=== PATIENT | female | born 1965 | race American Indian/Alaskan Native ===

== ENCOUNTER 2017-03-11 23:21 | Inpatient (IN) | payer OTHER ==
[2017-03-12 01:17] LABS: Basophils % (Auto) 0.5 % (0.0-1.8); Eosinophils % (Auto) 0.7 % (0.0-4.3); Hematocrit 37.3 % (30.3-42.9); Hemoglobin 11.8 gm/dl (10.1-14.3); Mean Corpuscular HGB Conc 32 % (30-34); Mean Corpuscular Hemoglobin 26 pg (28-32); Mean Corpuscular Volume 82 fl (79-97); Platelet Count 252 K/mm3 (140-440); Red Blood Count 4.56 M/mm3 (3.65-5.03); Red Cell Distribution Width 17.6 % (13.2-15.2); White Blood Count 6.7 K/mm3 (4.5-11.0)
[2017-03-12 01:37] LABS: Anion Gap 17 mmol/L; BUN/Creatinine Ratio 12; Blood Urea Nitrogen 7 mg/dL (7-17); Calcium 9.6 mg/dL (8.4-10.2); Carbon Dioxide 26 mmol/L (22-30); Chloride 98.7 mmol/L (98-107); Glucose 196 mg/dL (65-100); Potassium 3.7 mmol/L (3.6-5.0); Sodium 138 mmol/L (137-145)
--- NOTE | 2017-03-12 08:48 | XRay Report ---
AP CHEST: HISTORY: chest pain AP view of the chest demonstrates a normal mediastinal and cardiac contour with clear lungs and normal bony and soft tissue structures. IMPRESSION: Unremarkable AP chest.
[2017-03-12 09:04] LABS: Alanine Aminotransferase 17 units/L (7-56); Albumin 3.6 g/dL (3.9-5); Alkaline Phosphatase 74 units/L (35-129); Lipase 27 units/L (13-60); Total Protein 7.2 g/dL (6.3-8.2)
[2017-03-12 09:06] LABS: Bilirubin,Direct < 0.2 mg/dL (0-0.2); Bilirubin,Indirect 0.2 mg/dL
[2017-03-12] MEDS ORDERED: NACL 0.9% 1000 ML 1,000 ML IV ONE (09:16)
--- NOTE | 2017-03-12 10:23 | Emergency Department Report ---
ED Chest Pain HPI - General Chief Complaint: Chest Pain Stated Complaint: CHEST PAIN Time Seen by Provider: 03/12/17 08:18 Source: patient Mode of arrival: Ambulatory Limitations: No Limitations - History of Present Illness Initial Comments: 51 YO FEMALE WITH C/O 8/10 RETROSTERNAL CHEST PAIN ASSOCIATED WITH FATIGUE. SHE HAS BEEN HAVING RECURRENT CHEST PAIN WITH FATIGUE FOR SEVERAL MONTHS BUT SYMPTOMS ARE MORE FREQUENT AND LONG LASTING.PT ALSO COMPLAINS OF HEADACHE EVERYDAY AND ON 03/06/17 HAD THE WORSE HEADACHE OF HER LIFE. 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 SHE HAS HAD NO N/V/F/C BUT ONLY FATIGUE. MS VILLA IS A TYPE II DIABETIC,HTN,ARTHRITIS. 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 PT TOLD TRIAGE THAT SHE HAS HAD 6 DAYS OF CHEST PAIN ASSOCIATED WITH NAUSEA, BUT NO SHORTNESS OF BREATH. HER CHEST PAIN HAS INCREASED TODAY AND IS RADIATING INTO HER BACK. SHE HAS HAD A HEADACHE SINCE LAST WEEK. PT TOLD ME SHE HAS HAD A HEADACHE FOR YEARS BECAUSE OF GLAUCOMA MD Complaint: chest pain -: Gradual Onset: during rest Pain Location: substernal Pain Radiation: back Severity: moderate Severity scale (0 -10): 8 Consistency: intermittent Improves With: rest Other Symptoms: other (SHORT OF BREATH) - Related Data Home Medications Medication Instructions Recorded Confirmed Last Taken glipiZIDE [Glipizide] 10 mg PO BID 03/12/17 03/12/17 03/11/17 metFORMIN [Glucophage] 500 mg PO BID 03/12/17 03/12/17 03/11/17 Allergies Allergy/AdvReac Type Severity Reaction Status Date / Time ibuprofen [From Motrin IB] AdvReac Mild Hives Verified 09/16/14 04:25 Heart Score - HEART Score History: Highly suspicious EKG: Normal Age: 45-65 Risk factors: > 3 risk factors or hx of atherosclerotic disease Troponin: < normal limit HEART Score: 5 ED Review of Systems ROS: Stated complaint: CHEST PAIN Other details as noted in HPI ED Past Medical Hx - Past Medical History Previous Medical History?: Yes Hx Hypertension: Yes ("I have high blood pressure sometimes") Hx Diabetes: Yes Hx Arthritis: Yes Hx Asthma: No Hx HIV: No - Surgical History Past Surgical History?: Yes Additional Surgical History: , hysterectomy - Social History Smoking Status: Never Smoker Substance Use Type: None - Medications Home Medications: Home Medications Medication Instructions Recorded Confirmed Last Taken Type glipiZIDE [Glipizide] 10 mg PO BID 03/12/17 03/12/17 03/11/17 History metFORMIN [Glucophage] 500 mg PO BID 03/12/17 03/12/17 03/11/17 History ED Physical Exam - General Limitations: No Limitations General appearance: alert, in no apparent distress - Head Head exam: Present: atraumatic, normocephalic - Eye Eye exam: Present: normal appearance, EOMI ( IN RIGHT EYE, LEFT EYE BLIND PTOSIS ) - ENT ENT exam: Present: mucous membranes moist - Neck Neck exam: Present: normal inspection, full ROM - Respiratory Respiratory exam: Present: normal lung sounds bilaterally. Absent: respiratory distress - Cardiovascular Cardiovascular Exam: Present: regular rate, normal rhythm. Absent: systolic murmur, diastolic murmur, rubs, gallop - GI/Abdominal GI/Abdominal exam: Present: soft, normal bowel sounds, other (LARGE CENTRIPITAL FAT) - Extremities Exam Extremities exam: Present: normal inspection, full ROM - Back Exam Back exam: Present: normal inspection, full ROM - Neurological Exam Neurological exam: Present: alert, oriented X3, CN II-XII intact - Psychiatric Psychiatric exam: Present: normal affect, normal mood - Skin Skin exam: Present: warm, dry, intact, normal color. Absent: rash ED Course Vital Signs 03/12/17 03/12/17 03/12/17 00:04 00:21 08:18 Temperature 98 F 98 F 98.0 F Pulse Rate 77 77 56 L Respiratory 18 18 18 Rate Blood Pressure 127/79 Blood Pressure 127/79 137/82 [Right] O2 Sat by Pulse 98 98 99 Oximetry 03/12/17 03/12/17 03/12/17 11:06 11:10 11:30 Temperature Pulse Rate 60 60 62 Respiratory Rate Blood Pressure 133/82 126/78 130/74 Blood Pressure [Right] O2 Sat by Pulse Oximetry REJI score - Reji Score Age > 65: (0) No Aspirin use within the Past 7 Days: (0) No 3 or more CAD Risk Factors: (1) Yes 2 or more Angina events in past 24 hrs: (1) Yes Known CAD with more than 50% Stenosis: (0) No Elevated Cardiac Markers: (0) No ST Deviation Greater than 0.5mm: (0) No REJI Score: 2 ED Medical Decision Making - Lab Data Result diagrams: 03/12/17 13:11 03/12/17 13:11 - EKG Data EKG shows normal: sinus rhythm, axis, intervals, ST-T waves - EKG Data Interpretation: other (EARLY TRANSITION) - Radiology Data Radiology results: report reviewed (CXR: CLEAR CT HEAD;NEGATIVE) Critical care attestation.: If time is entered above; I have spent that time in minutes in the direct care of this critically ill patient, excluding procedure time. ED Disposition Clinical Impression: Unstable angina, Obesity (BMI 30-39.9) Hyperglycemia due to type 2 diabetes mellitus Qualifiers: Diabetes mellitus [facility] insulin use: without [facility] use Qualified Code(s ): E11.65 - Type 2 diabetes mellitus with hyperglycemia Headache Qualifiers: Headache type: unspecified Headache chronicity pattern: chronic headache Intractability: intractable Qualified Code(s): R51 - Headache Disposition: -09 OP ADMIT IP TO THIS HOSP Is pt being admited?: Yes Does the pt Need Aspirin: No Condition: Stable Instructions: Angina (ED), Diabetes Mellitus Type 2 in Adults (ED) Referrals: RENATA WERNER MD [Primary Care Provider] - 3-5 Days Time of Disposition: 14:34 (CASE REVIEWED WITH DR BUCKNER AND HE WILL ADMIT THE PT TOP THE HOSPITAL)
[2017-03-12] MEDS: ASPIRIN PO SCH (11:06)
[2017-03-12] MEDS: NITROSTAT SL PRN ×3 (11:06→11:30)
--- NOTE | 2017-03-12 12:33 | Cat Scan Report ---
CT HEAD WITHOUT CONTRAST: HISTORY: Headache. TECHNIQUE: Sequential 2.5mm CT images. COMPARISON: none. FINDINGS: Cerebral Parenchyma: Within normal limits. Cerebellum: Within normal limits. Brainstem: Within normal limits. Ventricles: Normal. Sella: Normal. Extra-axial spaces: Normal. Basal Cisterns: Normal. Intracranial Hemorrhage: None. Midline Shift: None. Calvarium: Normal. Sinuses: Normal. Mastoid Air Cells: Normal. Visualized Orbits: Normal. IMPRESSION: Cranial CT scan within normal limits.
--- NOTE | 2017-03-12 12:36 | History and Physical Report ---
History of Present Illness Chief complaint: I have chest pain History of present illness: 51 YO Female with HTN, DM,OA presents to ED for evaluation. Pt states that she has experienced pain in her chest for the past several weeks as well as feeling tired. Pt states that her symptoms have worsened and become more frequent over the past 6 days. Pain is 6-8/10, Substernal, worse with exertion, relieved with rest, associated with nausea, and diaphoresis, radiates to the back. Pt denies fever, chills, palpitations, Syncope, Trauma, productive cough, recent ill contacts, BRBPR, leg/calf pain, prolonged immobility/travel, individual/family history of DVT/PE. Pt seen and evaluated in ED and found to have ACS. Pt admitted to telemetry and treated IAW chest pain protocol. Past History Past Medical History: arthritis, diabetes, hypertension Past Surgical History: , hysterectomy Medications and Allergies Allergies Allergy/AdvReac Type Severity Reaction Status Date / Time ibuprofen [From Motrin IB] AdvReac Mild Hives Verified 09/16/14 04:25 Home Medications Medication Instructions Recorded Confirmed Last Taken Type glipiZIDE [Glipizide] 10 mg PO BID 03/12/17 03/12/17 03/11/17 History metFORMIN [Glucophage] 500 mg PO BID 03/12/17 03/12/17 03/11/17 History Active Meds: Active Medications Aspirin (Aspirin) 325 mg PO QDAY JENNIFER Last Admin: 03/12/17 11:06 Dose: Not Given Nitroglycerin (Nitrostat) 0.4 mg SL .Q5MIN PRN PRN Reason: Chest Pain Last Admin: 03/12/17 11:06 Dose: 0.4 mg Review of Systems Constitutional: no weight loss, no weight gain, no fever, no chills Ears, nose, mouth and throat: no ear pain, no ear discharge, no tinnitis, no decreased hearing, no nose pain Breasts: no change in shape, no swelling, no mass Cardiovascular: chest pain, no orthopnea, no palpitations, no rapid/irregular heart beat, no edema, no syncope Respiratory: no cough with sputum, no excessive sputum, no hemoptysis, no shortness of breath Gastrointestinal: nausea, vomiting, no diarrhea, no constipation, no change in bowel habits Genitourinary Female: no pelvic pain, no flank pain, no menorrhagia, no dysuria , no urinary frequency, no urgency Rectal: no pain, no incontinence, no bleeding Musculoskeletal: no neck stiffness, no neck pain, no shooting arm pain, no arm numbness/tingling, no low back pain Integumentary: no rash, no pruritis, no redness, no sores, no wounds, no jaundice Neurological: no head injury, no transient paralysis, no paralysis, no weakness , no parathesias, no numbness, no tingling Psychiatric: no anxiety, no memory loss, no change in sleep habits, no sleep disturbances, no insomnia, no hypersomnia, no change in appetite Endocrine: no cold intolerance, no heat intolerance, no polyphagia, no excessive thirst, no polydipsia, no polyuria, no nocturia Hematologic/Lymphatic: no easy bruising, no easy bleeding Allergic/Immunologic: no urticaria, no allergic rhinitis, no wheezing Exam - Constitutional Vitals: Temp Pulse Resp BP Pulse Ox 98.0 F 60 18 133/82 99 03/12/17 08:18 03/12/17 11:06 03/12/17 08:18 03/12/17 11:06 03/12/17 08:18 General appearance: Present: mild distress, obese - EENT Eyes: Present: PERRL ENT: hearing intact, clear oral mucosa - Neck Neck: Present: supple, normal ROM - Respiratory Respiratory effort: normal Respiratory: bilateral: CTA - Cardiovascular Heart Sounds: Present: S1 & S2. Absent: rub, click - Extremities Extremities: pulses symmetrical, No edema Peripheral Pulses: within normal limits - Abdominal General gastrointestinal: Present: soft, non-tender, non-distended, normal bowel sounds Female genitourinary: Present: normal - Integumentary Integumentary: Present: clear, warm, dry - Musculoskeletal Musculoskeletal: gait normal, strength equal bilaterally - Psychiatric Psychiatric: appropriate mood/affect, intact judgment & insight - Neurologic Neurologic: CNII-XII intact, moves all extremities Results - Labs CBC & Chem 7: 03/12/17 13:11 03/12/17 13:11 Labs: Abnormal lab results 03/12/17 03/12/17 03/12/17 Range/Units 00:51 00:51 01:26 MCH 26 L (28-32) pg RDW 17.6 H (13.2-15.2) % Lymph % (Auto) 39.9 H (13.4-35.0) % Creatinine 0.6 L (0.7-1.2) mg/dL Glucose 196 H (65-100) mg/dL POC Glucose 209 H (70-105) Albumin (3.9-5) g/dL 03/12/17 Range/Units 08:27 MCH (28-32) pg RDW (13.2-15.2) % Lymph % (Auto) (13.4-35.0) % Creatinine (0.7-1.2) mg/dL Glucose (65-100) mg/dL POC Glucose (70-105) Albumin 3.6 L (3.9-5) g/dL Assessment and Plan - Patient Problems (1) ACS (acute coronary syndrome) Current Visit: Yes Status: Acute Plan to address problem: Admit to telemetry, serial cardiac enzymes, echo, stress test, cardiology consulted, morphine, oxygen, nitro tabs, aspirin, (2) HTN (hypertension) Current Visit: Yes Status: Acute Plan to address problem: monitor bp q shift, continue medical management. (3) Diabetes Current Visit: Yes Status: Acute Plan to address problem: ADA diet, insulin, accu check (4) Metabolic syndrome Current Visit: Yes Status: Acute Plan to address problem: Low cholesterol diet, increased physical activity at discharge, statin therapy (5) DVT prophylaxis Current Visit: Yes Status: Acute
[2017-03-12] MEDS ORDERED: PROVENTIL IH PRN (12:51)
[2017-03-12] MEDS ORDERED: DULCOLAX PR PRN (12:51)
[2017-03-12] MEDS ORDERED: ZOFRAN IV PRN (12:51)
[2017-03-12] MEDS ORDERED: MILK OF MAGNESIA PO PRN (12:51)
[2017-03-12] MEDS ORDERED: SODIUM CHLORIDE FLUSH SYRINGE 10 ML IV PRN (12:51)
[2017-03-12] MEDS ORDERED: TYLENOL PO PRN (12:51)
[2017-03-12] MEDS ORDERED: BABY ASPIRIN PO STA (12:51)
[2017-03-12] MEDS ORDERED: D50W (25GM) Syringe IV PRN (13:38)
[2017-03-12 13:58] LABS: Anion Gap 16 mmol/L; BUN/Creatinine Ratio 15; Blood Urea Nitrogen 6 mg/dL (7-17); Calcium 8.8 mg/dL (8.4-10.2); Carbon Dioxide 23 mmol/L (22-30); Chloride 103.8 mmol/L (98-107); Glucose 115 mg/dL (65-100); Sodium 139 mmol/L (137-145)
[2017-03-12 14:02] LABS: Hematocrit 37.8 % (30.3-42.9); Hemoglobin 11.9 gm/dl (10.1-14.3); Mean Corpuscular HGB Conc 31 % (30-34); Mean Corpuscular Volume 82 fl (79-97); Platelet Count 215 K/mm3 (140-440); Red Blood Count 4.61 M/mm3 (3.65-5.03); Red Cell Distribution Width 17.9 % (13.2-15.2); White Blood Count 5.2 K/mm3 (4.5-11.0)
[2017-03-12 14:03] LABS: Mean Corpuscular Hemoglobin 26 pg (28-32)
[2017-03-12] MEDS: NOVOLOG SUB-Q SCH (21:39)
[2017-03-12] MEDS: COREG PO SCH (21:39)
[2017-03-13] MEDS: NOVOLOG SUB-Q SCH ×5 (07:36→22:06)
[2017-03-13] MEDS ORDERED: ATROPINE 1% OD SCH (10:00)
[2017-03-13] MEDS ORDERED: FERROUS SULFATE 65 MG PO SCH (10:00)
[2017-03-13] MEDS ORDERED: NON-FORMULARY (Carvedilol 12.5 MG) PO SCH (10:00)
[2017-03-13] MEDS ORDERED: FEOSOL PO SCH (10:00)
[2017-03-13] MEDS ORDERED: PROTONIX PO SCH (10:00)
[2017-03-13] MEDS ORDERED: NON-FORMULARY (Ranitidine Hcl 150 MG) PO SCH (10:00)
[2017-03-13] MEDS ORDERED: PREDNISOLONE ACETATE 1% OD SCH (10:00)
[2017-03-13] MEDS ORDERED: DORZOLAMIDE TIMOLOL EYE OD SCH (10:00)
[2017-03-13] MEDS ORDERED: LEXISCAN IV ONE (11:00)
--- NOTE | 2017-03-13 12:53 | Event Note ---
Date: 03/13/17 Stress thallium test completed: normal myocardial perfusion.
[2017-03-13] MEDS: ASPIRIN PO SCH (13:02)
[2017-03-13] MEDS: COREG PO SCH (13:02)
--- NOTE | 2017-03-13 17:49 | Discharge Summary ---
Providers - Providers Date of Admission: 03/12/17 12:51 Date of discharge: 03/13/17 Attending physician: JERAD VYAS 03/12/17 Consult to Cardiac Rehabilitation [CONS] Routine Reason For Exam: Phase I 03/12/17 12:53 Consult to Cardiology [CONS] Routine Consulting Provider: GEOVANNY SALAZAR Reason For Exam: acs Primary care physician: RENATA WERNER Hospitalization Condition: Good Hospital course: See dictated D/S in reports Disposition: DC-01 TO HOME OR SELFCARE Core Measure Documentation - Palliative Care Palliative Care/ Comfort Measures: Not Applicable - Core Measures Any of the following diagnoses?: none Exam - Constitutional Vitals: Temp Pulse Resp BP Pulse Ox 98.6 F 63 20 124/70 100 03/13/17 12:43 03/13/17 13:02 03/13/17 12:43 03/13/17 13:02 03/13/17 12:43 General appearance: Present: no acute distress, well-nourished - EENT Eyes: Present: PERRL ENT: hearing intact, clear oral mucosa - Neck Neck: Present: supple, normal ROM - Respiratory Respiratory effort: normal Respiratory: bilateral: CTA - Cardiovascular Heart Sounds: Present: S1 & S2. Absent: rub, click - Extremities Extremities: pulses symmetrical, No edema Peripheral Pulses: within normal limits - Abdominal General gastrointestinal: Present: soft, non-tender, non-distended, normal bowel sounds Female genitourinary: Present: normal - Integumentary Integumentary: Present: clear, warm, dry - Musculoskeletal Musculoskeletal: gait normal, strength equal bilaterally - Psychiatric Psychiatric: appropriate mood/affect, intact judgment & insight - Neurologic Neurologic: CNII-XII intact, moves all extremities Plan Activity: no restrictions Diet: diabetic Follow up with: RENATA WERNER MD [Primary Care Provider] - 3-5 Days GEOVANNY SALAZAR MD [Staff Physician] - 7 Days
--- NOTE | 2017-03-13 18:15 | History and Physical Report ---
Discharge Summary----- Not H and p The patient was admitted for chest pain of several weeks' duration. Symptoms worsened and became more frequent over the past 6 days, substernal chest pain. The patient was admitted for chest pain, rule out CA versus acute coronary syndrome, hypertension, diabetes, metabolic syndrome. The patient's blood sugars did well. Her labs were near normal. Sugars, glucose levels were in the range of 115, 111, 142 and 163. Total bilirubin was 0.4. LFTs are normal. Albumin was slightly low at 3.6. The patient had a myocardial perfusion imaging study, which was good, normal. No perfusion defects. The patient also had echocardiogram, which showed a left ventricular hypertrophy, but ejection fraction was 60-65%. Normal sonogram. The patient was tender on the left costochondral junction and the right costochondral junction consistent with costochondritis. DISCHARGE DIAGNOSES: Costochondritis, atypical chest pain, hypertension, insulin-dependent diabetes, metabolic syndrome. Meloxicam 15 mg daily for costochondritis for 15 days. JOB# [id number] YVAN/KAMERON LINARES
[2017-03-13 20:13] VITALS: BP 113/62
== END 2017-03-14 06:18 | disposition home or self-care (01) | DRG 206 ==
LOC: ED 23:21 → 4A 03-12 12:51
PROVIDERS: ADMIT Internal Medicine; ATTEND Internal Medicine
DX: M94.0 Chondrocostal junction syndrome [Tietze] (principal); I24.9 Acute ischemic heart disease, unspecified; I10 Essential (primary) hypertension; M19.90 Unspecified osteoarthritis, unspecified site; E66.9 Obesity, unspecified; E11.65 Type 2 diabetes mellitus with hyperglycemia; E88.81 Metabolic syndrome and other insulin resistance; Z68.39 Body mass index [BMI] 39.0-39.9, adult; Z88.8 Allergy status to other drugs, medicaments and biological substances; Z90.710 Acquired absence of both cervix and uterus; Z88.6 Allergy status to analgesic agent
CPT/HCPCS: 36415; 70450; 71010; 78452; 80048; 80061; 80074; 82962; 83690; 84484; 85025; 85379; 93005; 93010; 93017; 93306; A9270-GY; A9502; J1815; J2785; J7030